=== PATIENT | female | born 1995 | race Caucasian/White ===

== ENCOUNTER 2019-02-25 08:58 | Emergency (ER) | payer MEDICAID ==
[~2019-02-25] VITALS: Ht 157.5 cm; Wt 78.6 kg
[2019-02-25 09:02] VITALS: Ht 157.5 cm; Wt 78.6 kg
[2019-02-25] MEDS ORDERED: KEFLEX500 MG PO (09:12)
[2019-02-25] MEDS ORDERED: MEDROL DOSE PACK4 MG PO (09:16)
[2019-02-25 09:56] VITALS: BP 115/73
== END 2019-02-25 09:57 | disposition home or self-care (01) ==
LOC: D.ER 08:58
DX: J02.0 Streptococcal pharyngitis (principal)